=== PATIENT | male | born 2005 | race Caucasian/White ===

== ENCOUNTER 2025-01-22 13:52 | Emergency (ER) | payer MEDICAID, SELFPAY ==
[2025-01-22] MEDS ORDERED: Acetaminophen 500 MG TAB ONE (14:57)
== END 2025-01-22 16:17 | disposition home or self-care (01) ==
LOC: CSHERS 13:52
DX: M79.672 Pain in left foot (principal); G40.909 Epilepsy, unspecified, not intractable, without status epilepticus; W19.XXXA Unspecified fall, initial encounter
CPT/HCPCS: 99283